=== PATIENT | male | born 1945 | race Caucasian/White ===

== ENCOUNTER 2018-04-15 13:34 | Inpatient (IN) | payer MEDICARE, BC ==
[2018-04-15 14:09] LABS: ADD MAN DIFF? NO
[2018-04-15] MEDS: IBUPROFEN 600 MG TAB PO (14:16)
[2018-04-15] MEDS: PIPER-TAZO 3.375 GM IV (PMX) 100 ML IVPB (14:16)
[2018-04-15 14:33] LABS: ALANINE AMINOTRANSFERASE 22 IU/L (13-69); ALBUMIN 3.5 g/dl (3.3-4.9); ALBUMIN/GLOBULIN RATIO 1.29; ALKALINE PHOSPHATASE 71 IU/L (42-121); ANION GAP 11 (5-13); ASPARTATE AMINO TRANSFERASE 37 IU/L (15-46); BILIRUBIN,INDIRECT 0.1 mg/dl (0-1.1); BILIRUBIN,TOTAL 0.1 mg/dl (0.2-1.3); BLOOD UREA NITROGEN 49 mg/dl (7-20); CALCIUM 8.7 mg/dl (8.4-10.2); CARBON DIOXIDE 27 mmol/L (21-31); CHLORIDE 95 mmol/L (97-110); CREATININE 6.77 mg/dl (0.61-1.24); GLUCOSE 122 mg/dl (70-220); POTASSIUM 4.2 mmol/L (3.5-5.1); SODIUM 133 mmol/L (135-144); TOTAL PROTEIN 6.2 g/dl (6.1-8.1)
[2018-04-15 14:36] LABS: INR 1.19; PROTIME 15.2 Sec (11.9-14.9); PT RATIO 1.2
[2018-04-15 14:37] LABS: PARTIAL THROMBOPLASTIN TIME 41.7 Sec (23.0-35.0)
[2018-04-15] MEDS: CEFEPIME 1GM/50 ML (PMX) 50 ML IVPB (14:38)
[2018-04-15 14:41] LABS: WHITE BLOOD COUNT 11.9 10^3/ul (4.8-10.8)
[2018-04-15 14:41] LABS: ABNORMAL IP MESSAGE 1; BASOPHILS % 0.2 % (0.0-2.0); HEMATOCRIT 28.3 % (42.0-52.0); HEMOGLOBIN 8.9 g/dl (14.0-18.0); LYMPHOCYTES # 0.3 10^3/ul (0.8-2.9); LYMPHOCYTES % 2.5 % (15.0-51.0); MEAN CORPUSCULAR HEMOGLOBIN 30.2 pg (29.0-33.0); MEAN CORPUSCULAR HGB CONC 31.4 g/dl (32.0-37.0); MEAN CORPUSCULAR VOLUME 95.9 fl (82.0-101.0); MEAN PLATELET VOLUME 9.9 fl (7.4-10.4); MONOCYTE # 0.6 10^3/ul (0.3-0.9); MONOCYTES % 4.9 % (0.0-11.0); NEUTROPHILS % 91.9 % (39.0-77.0); PLATELET COUNT 149 10^3/UL (140-415); POSITIVE DIFF @See below; RED BLOOD COUNT 2.95 10^6/ul (4.70-6.10); RED CELL DISTRIBUTION WIDTH 15.3 % (11.5-14.5)
[2018-04-15 14:43] LABS: LIPASE < 10 U/L (23-300)
[2018-04-15] MEDS: VANCOMYCIN 1 GM (PMX) 250 ML IVPB (15:00)
[2018-04-15 15:02] LABS: TROPONIN-I 0.204 ng/ml (0.000-0.120)
[2018-04-15] MEDS: ASPIRIN 81 MG TAB PO (15:59)
[2018-04-15] MEDS ORDERED: NACL 0.9% 3 ML SYG IV (16:30)
[2018-04-15] MEDS ORDERED: ONDANSETRON 4 MG INJ IV (16:30)
[2018-04-15] MEDS ORDERED: VANCOMYCIN IV PER PHARMACY XX (16:30)
[2018-04-15] MEDS ORDERED: morphine 2 MG INJ IV (16:30)
[2018-04-15] MEDS ORDERED: DOCUSATE SODIUM 100 MG CAP PO (16:30)
[2018-04-15] MEDS: HYDROCODONE/APAP (5/325) TAB PO (16:52)
[2018-04-15] MEDS: VANCOMYCIN 750 MG (PMX) 250 ML IVPB (18:39)
[2018-04-15] MEDS: SOD CHLORIDE 0.9% 1,000 ML IV (18:39)
[2018-04-15 19:28] LABS: CREATINE KINASE 114 IU/L (23-200)
[2018-04-15 19:28] LABS: LACTIC ACID 1.4 mmol/L (0.5-2.0)
[2018-04-15 19:45] LABS: CK INDEX 0.4; CK-MB 0.49 ng/ml (0.0-2.4)
[2018-04-15 19:48] LABS: TROPONIN-I 0.289 ng/ml (0.000-0.120)
[2018-04-15] MEDS ORDERED: LORAZEPAM 2 MG INJ IV (21:30)
[2018-04-15] MEDS: ATORVASTATIN 40 MG TAB PO (21:48)
[2018-04-15] MEDS: HALOPERIDOL 5 MG INJ IM (21:48)
[2018-04-15] MEDS: SACUBITRIL/VALSARTAN (24mg-26mg) TABLET PO (21:48)
[2018-04-15] MEDS: RANOLAZINE (SR) 500 MG TAB PO (21:49)
[2018-04-15] MEDS: HEPARIN 5,000 UNIT/1 ML VIAL SC (21:58)
[2018-04-16] MEDS: LORAZEPAM 2 MG INJ IV (00:06)
[2018-04-16] MEDS: PIPER-TAZO 2.25 GM (PMX) 50 ML IVPB ×3 (01:14→21:00)
[2018-04-16 01:24] LABS: CREATINE KINASE 138 IU/L (23-200)
[2018-04-16 01:36] LABS: CK INDEX 0.6; CK-MB 0.76 ng/ml (0.0-2.4)
[2018-04-16 01:37] LABS: TROPONIN-I 0.306 ng/ml (0.000-0.120)
[2018-04-16 05:44] LABS: ADD MAN DIFF? NO
[2018-04-16 05:55] LABS: ABNORMAL IP MESSAGE 1; BASOPHILS % 0.1 % (0.0-2.0); HEMATOCRIT 26.1 % (42.0-52.0); HEMOGLOBIN 8.1 g/dl (14.0-18.0); LYMPHOCYTES # 0.5 10^3/ul (0.8-2.9); LYMPHOCYTES % 4.3 % (15.0-51.0); MEAN CORPUSCULAR HEMOGLOBIN 30.7 pg (29.0-33.0); MEAN CORPUSCULAR VOLUME 98.9 fl (82.0-101.0); MEAN PLATELET VOLUME 10.4 fl (7.4-10.4); MONOCYTE # 0.6 10^3/ul (0.3-0.9); NEUTROPHIL # 9.5 10^3/ul (1.6-7.5); NEUTROPHILS % 88.5 % (39.0-77.0); PLATELET COUNT 135 10^3/UL (140-415); POSITIVE DIFF @See below; RED BLOOD COUNT 2.64 10^6/ul (4.70-6.10); RED CELL DISTRIBUTION WIDTH 15.9 % (11.5-14.5)
[2018-04-16 05:55] LABS: WHITE BLOOD COUNT 10.8 10^3/ul (4.8-10.8)
[2018-04-16 06:24] LABS: CHOL/HDL RATIO 3.1 RATIO; HDL CHOLESTEROL 29 mg/dl (31-75); LDL CHOLESTEROL,CALCULATED 35 mg/dl; TRIGLYCERIDES 137 mg/dl (0-149)
[2018-04-16 06:24] LABS: CHOLESTEROL 91 mg/dl (100-200)
[2018-04-16 06:26] LABS: ANION GAP 14 (5-13); BLOOD UREA NITROGEN 64 mg/dl (7-20); CALCIUM 8.1 mg/dl (8.4-10.2); CARBON DIOXIDE 26 mmol/L (21-31); CHLORIDE 95 mmol/L (97-110); CREATININE 7.54 mg/dl (0.61-1.24); GLUCOSE 117 mg/dl (70-220); MAGNESIUM 1.9 mg/dl (1.7-2.5); PHOSPHORUS 4.2 mg/dl (2.5-4.9); POTASSIUM 4.5 mmol/L (3.5-5.1); SODIUM 135 mmol/L (135-144)
[2018-04-16 07:29] LABS: ANISOCYTOSIS 1+ (0-0); BAND NEUTROPHILS #M 1.1 10^3/ul (0.0-0.6); BAND NEUTROPHILS % (M) 11 % (0-4); BURR CELLS 2+ (0-0); GIANT THROMBO% (M) 1 % (0-0); LYMPHOCYTES #M 0.5 10^3/ul (0.8-2.9); LYMPHOCYTES % (M) 5 % (15-51); MICROCYTOSIS 1+ (0-0); MONOCYTE #M 0.3 10^3/ul (0.3-0.9); MONOCYTES % (M) 3 % (0-11); PLATELET ESTIMATE NORMAL; POIKILOCYTOSIS 2+ (0-0); POLYCHROMASIA 3+ (0-0); REACTIVE LYMPHOCYTES #M 0.4 10^3/ul (0.0-0.0); REACTIVE LYMPHOCYTES% (M) 4 % (0-0); SEG NEUT #M 8.4 10^3/ul (1.6-7.5); SEGMENTED NEUTROPHILS (M) % 77 % (39-77); SMUDGE%M 2 % (0-0)
[2018-04-16 09:01] LABS: IRON 33 ug/dl (35-150)
[2018-04-16 09:11] LABS: % IRON SATURATION 18 % SAT (22-52); TOTAL IRON BINDING CAPACITY 183 ug/dl (241-421)
[2018-04-16] MEDS: SACUBITRIL/VALSARTAN (24mg-26mg) TABLET PO ×2 (09:12→21:00)
[2018-04-16] MEDS: CLOPIDOGREL 75 MG TAB PO (09:13)
[2018-04-16] MEDS: RANOLAZINE (SR) 500 MG TAB PO ×2 (09:13→21:00)
[2018-04-16] MEDS: ASPIRIN 81 MG TAB PO (09:14)
[2018-04-16] MEDS: HEPARIN 5,000 UNIT/1 ML VIAL SC ×2 (09:14→21:00)
[2018-04-16] MEDS: ATORVASTATIN 40 MG TAB PO (21:00)
[2018-04-16 21:31] LABS: HEPATITIS B SURFACE ANTIGEN NEGATIVE (NEGATIVE)
[2018-04-17] MEDS: HEPARIN 1000 UNITS/ML 10 ML INJ CATHETER (01:50)
[2018-04-17 05:39] LABS: ADD MAN DIFF? NO
[2018-04-17 05:44] LABS: ABNORMAL IP MESSAGE 1; BASOPHILS % 0.1 % (0.0-2.0); EOSINOPHILS % 0.2 % (0.0-7.0); HEMATOCRIT 29.7 % (42.0-52.0); HEMOGLOBIN 9.4 g/dl (14.0-18.0); LYMPHOCYTES # 0.3 10^3/ul (0.8-2.9); LYMPHOCYTES % 3.7 % (15.0-51.0); MEAN CORPUSCULAR HEMOGLOBIN 29.9 pg (29.0-33.0); MEAN CORPUSCULAR HGB CONC 31.6 g/dl (32.0-37.0); MEAN CORPUSCULAR VOLUME 94.6 fl (82.0-101.0); MEAN PLATELET VOLUME 10.2 fl (7.4-10.4); MONOCYTE # 0.5 10^3/ul (0.3-0.9); NEUTROPHIL # 7.9 10^3/ul (1.6-7.5); NEUTROPHILS % 89.1 % (39.0-77.0); PLATELET COUNT 173 10^3/UL (140-415); POSITIVE DIFF @See below; RED BLOOD COUNT 3.14 10^6/ul (4.70-6.10); RED CELL DISTRIBUTION WIDTH 15.4 % (11.5-14.5)
[2018-04-17 05:44] LABS: WHITE BLOOD COUNT 8.9 10^3/ul (4.8-10.8)
[2018-04-17 06:10] LABS: ANION GAP 13 (5-13); BLOOD UREA NITROGEN 37 mg/dl (7-20); CALCIUM 8.2 mg/dl (8.4-10.2); CARBON DIOXIDE 25 mmol/L (21-31); CHLORIDE 96 mmol/L (97-110); CREATININE 4.54 mg/dl (0.61-1.24); GLUCOSE 114 mg/dl (70-220); MAGNESIUM 1.9 mg/dl (1.7-2.5); PHOSPHORUS 2.7 mg/dl (2.5-4.9); POTASSIUM 3.8 mmol/L (3.5-5.1); SODIUM 134 mmol/L (135-144)
[2018-04-17] MEDS ORDERED: SEVOFLURANE 15 MIN (07:00)
[2018-04-17] MEDS: RANOLAZINE (SR) 500 MG TAB PO ×2 (09:00→20:44)
[2018-04-17] MEDS: PIPER-TAZO 2.25 GM (PMX) 50 ML IVPB ×2 (09:00→20:44)
[2018-04-17] MEDS: HEPARIN 5,000 UNIT/1 ML VIAL SC ×2 (09:00→20:57)
[2018-04-17] MEDS: CLOPIDOGREL 75 MG TAB PO (09:00)
[2018-04-17] MEDS: ASPIRIN 81 MG TAB PO (09:00)
[2018-04-17] MEDS ORDERED: HEPARIN 1000 UNITS/ML 10 ML INJ (14:53)
[2018-04-17] MEDS ORDERED: LABETALOL HCL 20MG INJ IV (15:00)
[2018-04-17] MEDS ORDERED: HYDROmorphONE 1 MG/5 ML IV SYRINGE IV ×2 (15:00)
[2018-04-17] MEDS ORDERED: FENTAnyl 50 MCG/ML VIAL IV ×3 (15:00)
[2018-04-17] MEDS ORDERED: METOCLOPRAMIDE 10 MG INJ IV (15:00)
[2018-04-17] MEDS ORDERED: ONDANSETRON 4 MG INJ IV (15:00)
[2018-04-17] MEDS ORDERED: hydrALAzine 20 MG INJ IV (15:00)
[2018-04-17] MEDS ORDERED: EPHEDrine SULFATE 50 MG/5 ML SYG IV (15:00)
[2018-04-17] MEDS ORDERED: MIDAZOLAM 1 MG/ML 2 ML INJ (15:02)
[2018-04-17] MEDS ORDERED: FENTAnyl 50 MCG/ML VIAL (15:02)
[2018-04-17] MEDS ORDERED: ROPIVACAINE 0.5 % 30 ML VIAL (15:02)
[2018-04-17] MEDS ORDERED: PHENYLephrine (100 MCG/ML) 10ML SYG (15:30)
[2018-04-17] MEDS ORDERED: PROPOFOL 20 ML (15:30)
[2018-04-17] MEDS: BUPIVACAINE 0.25% (MPF) 30 ML INJ (15:45)
[2018-04-17] MEDS ORDERED: METOCLOPRAMIDE 10 MG INJ (15:47)
[2018-04-17] MEDS ORDERED: ONDANSETRON 4 MG INJ (15:47)
[2018-04-17] MEDS ORDERED: CEFAZOLIN 1 GM INJ (15:47)
[2018-04-17] MEDS: LIDOCAINE 1% (MPF) 30 ML INJ (15:47)
[2018-04-17] MEDS: HEPARIN 1000 UNITS/ML 10 ML INJ (15:47)
[2018-04-17] MEDS ORDERED: DEXAMETHASONE 4 MG/ML 5 ML INJ (15:47)
[2018-04-17] MEDS ORDERED: EPHEDrine SULFATE 50 MG/5 ML SYG (15:56)
[2018-04-17] MEDS: SOD CHLORIDE 0.9% 1,000 ML IV (16:25)
[2018-04-17] MEDS ORDERED: FAMOTIDINE 20 MG INJ (16:32)
[2018-04-17] MEDS ORDERED: LABETALOL HCL 20MG INJ (16:34)
[2018-04-17] MEDS: THROMBIN 5000 UNIT VIAL (16:57)
[2018-04-17] MEDS: GELATIN SIZE 100 SPONGE (16:58)
[2018-04-17] MEDS: SACUBITRIL/VALSARTAN (24mg-26mg) TABLET PO ×2 (17:38→20:47)
[2018-04-17] MEDS: VANCOMYCIN HCL 1.25 GM in SOD CHLORIDE 0.9% 250 ML IVPB (18:14)
[2018-04-17] MEDS: ATORVASTATIN 40 MG TAB PO (20:44)
[2018-04-18] MEDS: LORAZEPAM 2 MG INJ IV (00:35)
[2018-04-18 06:03] LABS: ADD MAN DIFF? NO
[2018-04-18 06:13] LABS: ABNORMAL IP MESSAGE 1; HEMATOCRIT 29.7 % (42.0-52.0); HEMOGLOBIN 9.1 g/dl (14.0-18.0); LYMPHOCYTES # 0.3 10^3/ul (0.8-2.9); LYMPHOCYTES % 6.2 % (15.0-51.0); MEAN CORPUSCULAR HEMOGLOBIN 29.5 pg (29.0-33.0); MEAN CORPUSCULAR HGB CONC 30.6 g/dl (32.0-37.0); MEAN CORPUSCULAR VOLUME 96.4 fl (82.0-101.0); MEAN PLATELET VOLUME 10.5 fl (7.4-10.4); MONOCYTE # 0.2 10^3/ul (0.3-0.9); MONOCYTES % 3.8 % (0.0-11.0); NEUTROPHIL # 4.5 10^3/ul (1.6-7.5); NEUTROPHILS % 89.4 % (39.0-77.0); PLATELET COUNT 170 10^3/UL (140-415); POSITIVE DIFF @See below; RED BLOOD COUNT 3.08 10^6/ul (4.70-6.10); RED CELL DISTRIBUTION WIDTH 15.6 % (11.5-14.5)
[2018-04-18 07:00] LABS: ANION GAP 14 (5-13); BLOOD UREA NITROGEN 55 mg/dl (7-20); CARBON DIOXIDE 23 mmol/L (21-31); CHLORIDE 97 mmol/L (97-110); CREATININE 5.83 mg/dl (0.61-1.24); GLUCOSE 186 mg/dl (70-220); POTASSIUM 4.1 mmol/L (3.5-5.1); SODIUM 134 mmol/L (135-144)
[2018-04-18] MEDS: SACUBITRIL/VALSARTAN (24mg-26mg) TABLET PO ×2 (08:22→21:00)
[2018-04-18] MEDS: ASPIRIN 81 MG TAB PO (08:22)
[2018-04-18] MEDS: RANOLAZINE (SR) 500 MG TAB PO ×2 (08:22→21:21)
[2018-04-18] MEDS: CLOPIDOGREL 75 MG TAB PO (08:22)
[2018-04-18] MEDS: HEPARIN 5,000 UNIT/1 ML VIAL SC ×2 (08:25→21:38)
[2018-04-18] MEDS: PIPER-TAZO 2.25 GM (PMX) 50 ML IVPB ×2 (08:27→21:00)
[2018-04-18] MEDS: HYDROmorphONE 1 MG/ML SYG IV (15:50)
[2018-04-18] MEDS: SOD CHLORIDE 0.9% 1,000 ML IV (16:09)
[2018-04-18] MEDS: ATORVASTATIN 40 MG TAB PO (21:21)
[2018-04-19] MEDS: HEPARIN 1000 UNITS/ML 10 ML INJ CATHETER (02:25)
[2018-04-19 05:46] LABS: ADD MAN DIFF? NO
[2018-04-19 05:47] LABS: WHITE BLOOD COUNT 6.9 10^3/ul (4.8-10.8)
[2018-04-19 05:47] LABS: EOSINOPHILS % 0.1 % (0.0-7.0); HEMATOCRIT 29.4 % (42.0-52.0); HEMOGLOBIN 9.2 g/dl (14.0-18.0); LYMPHOCYTES # 0.8 10^3/ul (0.8-2.9); LYMPHOCYTES % 11.5 % (15.0-51.0); MEAN CORPUSCULAR HEMOGLOBIN 29.9 pg (29.0-33.0); MEAN CORPUSCULAR HGB CONC 31.3 g/dl (32.0-37.0); MEAN CORPUSCULAR VOLUME 95.5 fl (82.0-101.0); MEAN PLATELET VOLUME 10.2 fl (7.4-10.4); MONOCYTE # 0.7 10^3/ul (0.3-0.9); MONOCYTES % 10.7 % (0.0-11.0); NEUTROPHIL # 5.3 10^3/ul (1.6-7.5); NEUTROPHILS % 77.1 % (39.0-77.0); PLATELET COUNT 197 10^3/UL (140-415); RED BLOOD COUNT 3.08 10^6/ul (4.70-6.10); RED CELL DISTRIBUTION WIDTH 15.5 % (11.5-14.5)
[2018-04-19 06:16] LABS: ANION GAP 9 (5-13); BLOOD UREA NITROGEN 34 mg/dl (7-20); CALCIUM 8.6 mg/dl (8.4-10.2); CARBON DIOXIDE 30 mmol/L (21-31); CHLORIDE 99 mmol/L (97-110); CREATININE 4.03 mg/dl (0.61-1.24); GLUCOSE 131 mg/dl (70-220); POTASSIUM 3.4 mmol/L (3.5-5.1); SODIUM 138 mmol/L (135-144)
[2018-04-19] MEDS: RANOLAZINE (SR) 500 MG TAB PO ×2 (09:20→21:02)
[2018-04-19] MEDS: CLOPIDOGREL 75 MG TAB PO (09:20)
[2018-04-19] MEDS: SACUBITRIL/VALSARTAN (24mg-26mg) TABLET PO ×2 (09:20→21:02)
[2018-04-19] MEDS: ASPIRIN 81 MG TAB PO (09:20)
[2018-04-19] MEDS: POTASSIUM CHLORIDE (SR) 20 MEQ TAB PO (09:21)
[2018-04-19] MEDS: PIPER-TAZO 2.25 GM (PMX) 50 ML IVPB ×2 (09:21→21:03)
[2018-04-19] MEDS: HEPARIN 5,000 UNIT/1 ML VIAL SC ×2 (09:32→21:11)
[2018-04-19] MEDS: EPOETIN 10000 UNITS/1 ML INJ (ESRD) SC (17:11)
[2018-04-19] MEDS: ATORVASTATIN 40 MG TAB PO (21:02)
[2018-04-20] MEDS: traZODone 50 MG TAB PO (01:27)
[2018-04-20] MEDS: HYDROCODONE/APAP (5/325) TAB PO ×2 (01:27→22:25)
[2018-04-20 05:15] LABS: ADD MAN DIFF? NO
[2018-04-20 05:22] LABS: WHITE BLOOD COUNT 6.3 10^3/ul (4.8-10.8)
[2018-04-20 05:22] LABS: EOSINOPHILS # 0.1 10^3/ul (0.0-0.5); HEMATOCRIT 28.9 % (42.0-52.0); HEMOGLOBIN 9.1 g/dl (14.0-18.0); LYMPHOCYTES % 16.3 % (15.0-51.0); MEAN CORPUSCULAR HEMOGLOBIN 30.2 pg (29.0-33.0); MEAN CORPUSCULAR HGB CONC 31.5 g/dl (32.0-37.0); MEAN PLATELET VOLUME 9.6 fl (7.4-10.4); MONOCYTE # 0.7 10^3/ul (0.3-0.9); MONOCYTES % 11.2 % (0.0-11.0); NEUTROPHIL # 4.4 10^3/ul (1.6-7.5); NEUTROPHILS % 70.7 % (39.0-77.0); PLATELET COUNT 233 10^3/UL (140-415); RED BLOOD COUNT 3.01 10^6/ul (4.70-6.10); RED CELL DISTRIBUTION WIDTH 15.7 % (11.5-14.5)
[2018-04-20 05:50] LABS: VANCOMYCIN,RANDOM 15.7 ug/ml
[2018-04-20 05:53] LABS: ANION GAP 9 (5-13); BLOOD UREA NITROGEN 42 mg/dl (7-20); CALCIUM 8.7 mg/dl (8.4-10.2); CARBON DIOXIDE 29 mmol/L (21-31); CHLORIDE 99 mmol/L (97-110); CREATININE 5.84 mg/dl (0.61-1.24); GLUCOSE 101 mg/dl (70-220); PHOSPHORUS 2.9 mg/dl (2.5-4.9); POTASSIUM 3.7 mmol/L (3.5-5.1); SODIUM 137 mmol/L (135-144)
[2018-04-20] MEDS: SACUBITRIL/VALSARTAN (24mg-26mg) TABLET PO ×2 (09:02→20:44)
[2018-04-20] MEDS: RANOLAZINE (SR) 500 MG TAB PO ×2 (09:03→20:44)
[2018-04-20] MEDS: ASPIRIN 81 MG TAB PO (09:03)
[2018-04-20] MEDS: CLOPIDOGREL 75 MG TAB PO (09:03)
[2018-04-20] MEDS: HEPARIN 5,000 UNIT/1 ML VIAL SC ×2 (09:50→20:58)
[2018-04-20] MEDS: PIPER-TAZO 2.25 GM (PMX) 50 ML IVPB (09:53)
[2018-04-20] MEDS: LORAZEPAM 1 MG TAB PO ×2 (10:19→20:44)
[2018-04-20] MEDS ORDERED: morphine LIQ (10 MG/5 ML) CUP PO (10:30)
[2018-04-20] MEDS: HEPARIN 1000 UNITS/ML 10 ML INJ CATHETER (18:11)
[2018-04-20] MEDS: VANCOMYCIN 1 GM 250 ML IVPB (18:50)
[2018-04-20] MEDS: ATORVASTATIN 40 MG TAB PO (20:44)
[2018-04-21 06:05] LABS: ADD MAN DIFF? NO
[2018-04-21 06:08] LABS: BASOPHILS % 0.1 % (0.0-2.0); EOSINOPHILS # 0.1 10^3/ul (0.0-0.5); EOSINOPHILS % 0.9 % (0.0-7.0); HEMATOCRIT 27.9 % (42.0-52.0); HEMOGLOBIN 8.5 g/dl (14.0-18.0); LYMPHOCYTES # 1.3 10^3/ul (0.8-2.9); LYMPHOCYTES % 18.9 % (15.0-51.0); MEAN CORPUSCULAR HEMOGLOBIN 29.3 pg (29.0-33.0); MEAN CORPUSCULAR HGB CONC 30.5 g/dl (32.0-37.0); MEAN CORPUSCULAR VOLUME 96.2 fl (82.0-101.0); MEAN PLATELET VOLUME 9.8 fl (7.4-10.4); MONOCYTE # 0.8 10^3/ul (0.3-0.9); MONOCYTES % 11.1 % (0.0-11.0); NEUTROPHIL # 4.6 10^3/ul (1.6-7.5); NEUTROPHILS % 67.2 % (39.0-77.0); PLATELET COUNT 240 10^3/UL (140-415); RED CELL DISTRIBUTION WIDTH 15.8 % (11.5-14.5)
[2018-04-21 06:08] LABS: WHITE BLOOD COUNT 6.8 10^3/ul (4.8-10.8)
[2018-04-21 06:45] LABS: ALBUMIN 2.9 g/dl (3.3-4.9); ANION GAP 11 (5-13); BLOOD UREA NITROGEN 31 mg/dl (7-20); CALCIUM 8.7 mg/dl (8.4-10.2); CARBON DIOXIDE 31 mmol/L (21-31); CHLORIDE 99 mmol/L (97-110); CREATININE 4.72 mg/dl (0.61-1.24); GLUCOSE 105 mg/dl (70-220); MAGNESIUM 1.9 mg/dl (1.7-2.5); PHOSPHORUS 3.4 mg/dl (2.5-4.9); SODIUM 141 mmol/L (135-144)
[2018-04-21] MEDS: CLOPIDOGREL 75 MG TAB PO (08:22)
[2018-04-21] MEDS: RANOLAZINE (SR) 500 MG TAB PO ×2 (08:22→20:15)
[2018-04-21] MEDS: SACUBITRIL/VALSARTAN (24mg-26mg) TABLET PO ×2 (08:22→20:15)
[2018-04-21] MEDS: ASPIRIN 81 MG TAB PO (08:23)
[2018-04-21] MEDS: HEPARIN 5,000 UNIT/1 ML VIAL SC ×2 (08:24→20:28)
[2018-04-21] MEDS: EPOETIN 10000 UNITS/1 ML INJ (ESRD) SC (17:05)
[2018-04-21] MEDS: ATORVASTATIN 40 MG TAB PO (20:15)
[2018-04-21] MEDS: LORAZEPAM 1 MG TAB PO (20:19)
[2018-04-21] MEDS: HYDROCODONE/APAP (5/325) TAB PO (21:46)
[2018-04-22 06:26] LABS: INR 1.03; PROTIME 13.6 Sec (11.9-14.9); PT RATIO 1.1
[2018-04-22 06:31] LABS: ADD MAN DIFF? NO
[2018-04-22 06:49] LABS: BASOPHILS % 0.2 % (0.0-2.0); EOSINOPHILS # 0.1 10^3/ul (0.0-0.5); EOSINOPHILS % 1.5 % (0.0-7.0); HEMATOCRIT 26.9 % (42.0-52.0); HEMOGLOBIN 8.1 g/dl (14.0-18.0); LYMPHOCYTES % 16.4 % (15.0-51.0); MEAN CORPUSCULAR HEMOGLOBIN 29.6 pg (29.0-33.0); MEAN CORPUSCULAR HGB CONC 30.1 g/dl (32.0-37.0); MEAN CORPUSCULAR VOLUME 98.2 fl (82.0-101.0); MEAN PLATELET VOLUME 9.7 fl (7.4-10.4); MONOCYTE # 0.6 10^3/ul (0.3-0.9); MONOCYTES % 10.7 % (0.0-11.0); NEUTROPHIL # 4.2 10^3/ul (1.6-7.5); NEUTROPHILS % 69.4 % (39.0-77.0); PLATELET COUNT 247 10^3/UL (140-415); RED BLOOD COUNT 2.74 10^6/ul (4.70-6.10)
[2018-04-22 07:21] LABS: ANION GAP 14 (5-13); BLOOD UREA NITROGEN 40 mg/dl (7-20); CARBON DIOXIDE 25 mmol/L (21-31); CHLORIDE 99 mmol/L (97-110); CREATININE 6.32 mg/dl (0.61-1.24); GLUCOSE 97 mg/dl (70-220); MAGNESIUM 1.9 mg/dl (1.7-2.5); PHOSPHORUS 4.3 mg/dl (2.5-4.9); POTASSIUM 3.6 mmol/L (3.5-5.1); SODIUM 138 mmol/L (135-144)
[2018-04-22] MEDS: HEPARIN 5,000 UNIT/1 ML VIAL SC ×2 (09:00→21:00)
[2018-04-22] MEDS: ASPIRIN 81 MG TAB PO (09:00)
[2018-04-22] MEDS: CLOPIDOGREL 75 MG TAB PO (09:00)
[2018-04-22] MEDS: RANOLAZINE (SR) 500 MG TAB PO ×2 (09:07→23:35)
[2018-04-22] MEDS: SACUBITRIL/VALSARTAN (24mg-26mg) TABLET PO ×2 (09:08→23:34)
[2018-04-22] MEDS ORDERED: HEPARIN 1000 UNITS/ML 10 ML INJ (11:36)
[2018-04-22] MEDS ORDERED: LIDOCAINE 1% (MDV) 20 ML INJ (11:36)
[2018-04-22] MEDS ORDERED: MIDAZOLAM 1 MG/ML 2 ML INJ (12:11)
[2018-04-22] MEDS ORDERED: FENTAnyl 50 MCG/ML VIAL (12:11)
[2018-04-22] MEDS: LORAZEPAM 1 MG TAB PO (20:44)
[2018-04-22] MEDS: ATORVASTATIN 40 MG TAB PO (23:34)
[2018-04-22] MEDS: HEPARIN 1000 UNITS/ML 10 ML INJ CATHETER (23:40)
[2018-04-23] MEDS: RANOLAZINE (SR) 500 MG TAB PO (09:25)
[2018-04-23] MEDS: ASPIRIN 81 MG TAB PO (09:26)
[2018-04-23] MEDS: SACUBITRIL/VALSARTAN (24mg-26mg) TABLET PO (09:26)
[2018-04-23] MEDS: CLOPIDOGREL 75 MG TAB PO (09:26)
[2018-04-23] MEDS: HEPARIN 5,000 UNIT/1 ML VIAL SC (09:45)
[2018-04-23] MEDS: ACETAMINOPHEN 325 MG TAB PO (16:14)
[2018-04-23] MEDS: EPOETIN 10000 UNITS/1 ML INJ (ESRD) SC (16:16)
== END 2018-04-23 19:12 | disposition home health service (06) | DRG 252 ==
LOC: 6WM 04-16 08:34 → E/R 13:34 → 6WM 14:26
PROVIDERS: Internal Medicine
PROC: 03LY0CZ Occlusion of Upper Artery with Extraluminal Device, Open Approach (ICD-10-PCS; 2018-04-17 14:00)
PROC: 02H633Z Insertion of Infusion Device into Right Atrium, Percutaneous Approach (ICD-10-PCS; principal; 2018-04-17 15:21)
PROC: 05PY03Z Removal of Infusion Device from Upper Vein, Open Approach (ICD-10-PCS; 2018-04-17 15:21)
PROC: 5A1D70Z Performance of Urinary Filtration, Intermittent, Less than 6 Hours Per Day (ICD-10-PCS; 2018-04-17 15:21)
PROC: 0JH60XZ Insertion of Tunneled Vascular Access Device into Chest Subcutaneous Tissue and Fascia, Open Approach (ICD-10-PCS; 2018-04-17 15:21)
PROC: 02H633Z Insertion of Infusion Device into Right Atrium, Percutaneous Approach (ICD-10-PCS; 2018-04-17 15:21)
DX: T80.211A Bloodstream infection due to central venous catheter, initial encounter (principal); N18.6 End stage renal disease; G92 Toxic encephalopathy; A41.1 Sepsis due to other specified staphylococcus; I21.4 Non-ST elevation (NSTEMI) myocardial infarction; L03.113 Cellulitis of right upper limb; E87.1 Hypo-osmolality and hyponatremia; T82.7XXA Infection and inflammatory reaction due to other cardiac and vascular devices, implants and grafts, initial encounter; I13.2 Hypertensive heart and chronic kidney disease with heart failure and with stage 5 chronic kidney disease, or end stage renal disease; Z99.2 Dependence on renal dialysis; Z95.0 Presence of cardiac pacemaker; Z87.891 Personal history of nicotine dependence; D64.9 Anemia, unspecified; R60.9 Edema, unspecified; I50.9 Heart failure, unspecified
CPT/HCPCS: 36415; 36556; 71045; 80048; 80053; 80061; 80069; 80202; 82550; 82553; 82728; 83540; 83605; 83690; 83735; 84100; 84484; 85025; 85610; 85730; 86850; 86900; 86901; 87040; 87070; 87075; 87081; 87102; 87340; 90935; 93005; 93971; 96374; 97161; 97165; 99291-25